=== PATIENT | female | born 1985 | race Caucasian/White ===

== ENCOUNTER → 2016-08-01 | Outpatient (CLI) | payer OTHER ==
[2016-08-01 10:40] LABS: CH 25.3; CHCM 31.8; HCT 36.8 % (34.0-46.0); HGB 11.5 gm/dL (11.4-16.0); Hypochromasia Slight; MCH 24.9 pg (25.0-35.0); MCHC 31.3 g/dL (31.0-37.0); MCV 79.8 fL (80.0-100.0); Mean Platelet Volume 7.3; RBC 4.61 m/uL (3.80-5.40); RDW 14.2 % (11.5-15.5); WBC 11.2 k/uL (3.8-10.6)
[2016-08-01 10:51] LABS: Prothrombin Time 10.3 sec (9.0-12.0)
== END | disposition home or self-care (01) ==
LOC: LABWHC1 09:37
PROVIDERS: ATTEND Internal Medicine
DX: I82.409 Acute embolism and thrombosis of unspecified deep veins of unspecified lower extremity (principal); E61.1 Iron deficiency; E66.01 Morbid (severe) obesity due to excess calories
CPT/HCPCS: 36415; 85027; 85610

== ENCOUNTER 2016-09-22 12:06 | Emergency (ER) | payer OTHER ==
[2016-09-22 12:22] VITALS: RESP 18
[2016-09-22] MEDS ORDERED: RX INFO: IV CONTRAST WAS GIVEN 1 EACH MISC MISCELLANE PRN (12:42)
--- NOTE | 2016-09-22 12:51 | ED ---
General Adult HPI - General Chief complaint: Back Pain/Injury Stated complaint: Poss Blood Clot Time Seen by Provider: 09/22/16 12:24 Source: patient, RN notes reviewed Mode of arrival: ambulatory Limitations: no limitations - History of Present Illness Initial comments: 30-year-old female presents emergency Department to rule out pulmonary embolism. Patient has had a blood clot in her right leg her last few weeks. He was diagnosed here. She states she's been having difficulty with her INR level on Coumadin. Patient states he keep open her dose states is not within normal range. Patient states that she has developed left shoulder, chest wall pain over the last few days and her doctor here to rule out PE. Patient also complains that she's been having frequent headaches after an increase in her dose of warfarin. Patient states she does have history of migraines. She states that her headache is very minimal at this time. Patient denies any shortness breath or pain with deep inspiration though. - Related Data Home Medications Medication Instructions Recorded Confirmed Acetaminophen Tab [Tylenol Tab] 1,000 mg PO Q6HR PRN 09/22/16 09/22/16 Warfarin [Coumadin] 15 mg PO DAILY@1830 09/22/16 09/22/16 Allergies Allergy/AdvReac Type Severity Reaction Status Date / Time No Known Allergies Allergy Verified 09/22/16 13:46 Review of Systems ROS Statement: Those systems with pertinent positive or pertinent negative responses have been documented in the HPI. ROS Other: All systems not noted in ROS Statement are negative. Past Medical History Past Medical History: No Reported History Additional Past Medical History / Comment(s): tourettes, -induced hypertension, recent delivery and is breast feeding. History of Any Multi-Drug Resistant Organisms: None Reported Past Surgical History: Section, Orthopedic Surgery Additional Past Surgical History / Comment(s): 06/27/16 , 2009 , R elbow surgery as child due to injury. Past Anesthesia/Blood Transfusion Reactions: No Reported Reaction Past Psychological History: No Psychological Hx Reported Additional Psychological History / Comment(s): Pt resides with 2 children. She is independent. Smoking Status: Current every day smoker Past Alcohol Use History: None Reported Additional Past Alcohol Use History / Comment(s): Pt states she started smoking at the age of 19 yrs and is a half pack a day smoker. Past Drug Use History: None Reported - Past Family History Father Family Medical History: Cancer Additional Family Medical History / Comment(s): Father has stage IV lung cancer with mets to brain. Mother Family Medical History: Myocardial Infarction ([place]) Additional Family Medical History / Comment(s): Mother had a [place] at the age of 57yrs. General Exam Limitations: no limitations General appearance: alert, in no apparent distress Head exam: Present: atraumatic, normocephalic, normal inspection Neck exam: Present: normal inspection. Absent: tenderness, meningismus, lymphadenopathy Respiratory exam: Present: normal lung sounds bilaterally. Absent: respiratory distress, wheezes, rales, rhonchi, stridor, chest wall tenderness Cardiovascular Exam: Present: regular rate, normal rhythm, normal heart sounds. Absent: systolic murmur, diastolic murmur, rubs, gallop, clicks GI/Abdominal exam: Present: soft, normal bowel sounds. Absent: distended, tenderness, guarding, rebound, rigid Neurological exam: Present: alert, oriented X3, CN II-XII intact, reflexes normal. Absent: motor sensory deficit Skin exam: Present: warm, intact Course Vital Signs 09/22/16 12:18 Temperature 98 F Pulse Rate 99 Respiratory 18 Rate Blood Pressure 135/86 O2 Sat by Pulse 98 Oximetry Medical Decision Making - Medical Decision Making 30-year-old female presented to rule out blood clot. Patient has no evidence blood clot on CT. Patient CT brain showed no acute abnormality for headaches. Patient will be discharged at this time. Patient's INR is 1.9. - Lab Data Result diagrams: 09/22/16 12:57 09/22/16 12:57 Lab Results 09/22/16 09/22/16 09/22/16 Range/Units 12:57 12:57 12:57 WBC 12.4 H (3.8-10.6) k/uL RBC 5.14 (3.80-5.40) m/uL Hgb 12.6 (11.4-16.0) gm/dL Hct 38.5 (34.0-46.0) % MCV 74.9 L (80.0-100.0) fL MCH 24.6 L (25.0-35.0) pg MCHC 32.8 (31.0-37.0) g/dL RDW 14.2 (11.5-15.5) % Plt Count 380 (150-450) k/uL Neutrophils % 55 % Lymphocytes % 35 % Monocytes % 3 % Eosinophils % 4 % Basophils % 1 % Neutrophils # 6.8 (1.3-7.7) k/uL Lymphocytes # 4.4 (1.0-4.8) k/uL Monocytes # 0.3 (0-1.0) k/uL Eosinophils # 0.5 (0-0.7) k/uL Basophils # 0.1 (0-0.2) k/uL Microcytosis Slight PT 18.8 H (9.0-12.0) sec INR 1.9 (<1.1) APTT 29.3 (22.0-30.0) sec Sodium 142 (137-145) mmol/L Potassium 4.2 (3.5-5.1) mmol/L Chloride 105 (98-107) mmol/L Carbon Dioxide 26 (22-30) mmol/L Anion Gap 11 mmol/L BUN 9 (7-17) mg/dL Creatinine 0.70 (0.52-1.04) mg/dL Est GFR (MDRD) Af Amer >60 (>60 ml/min/1.73 sqM) Est GFR (MDRD) Non-Af >60 (>60 ml/min/1.73 sqM) Glucose 95 (74-99) mg/dL Calcium 9.2 (8.4-10.2) mg/dL Disposition Clinical Impression: Left shoulder pain, Frequent headaches Disposition: HOME SELF-CARE Condition: Stable Instructions: Shoulder Pain (ED) Additional Instructions: Your INR is 1.9. Please follow-up with your primary care physician regarding further dosing. Please return to the Emergency Department if symptoms worsen or any other concerns. Time of Disposition: 14:08
[2016-09-22 13:11] LABS: Basophils # (A) 0.1 k/uL (0-0.2); Basophils % (A) 1 %; CH 24.6; CHCM 32.9; Eosinophils # (A) 0.5 k/uL (0-0.7); Eosinophils % (A) 4 %; HCT 38.5 % (34.0-46.0); HDW 3.14; HGB 12.6 gm/dL (11.4-16.0); Luc # (Auto) 0.27; Luc % (Auto) 2; Lymphocytes # (A) 4.4 k/uL (1.0-4.8); Lymphocytes % (A) 35 %; MCH 24.6 pg (25.0-35.0); MCHC 32.8 g/dL (31.0-37.0); MCV 74.9 fL (80.0-100.0); Mean Platelet Volume 6.5; Microcytosis Slight; Monocytes # (A) 0.3 k/uL (0-1.0); Monocytes % (A) 3 %; Neutrophils # (A) 6.8 k/uL (1.3-7.7); Neutrophils % (A) 55 %; RBC 5.14 m/uL (3.80-5.40); RDW 14.2 % (11.5-15.5); WBC 12.4 k/uL (3.8-10.6); WBC (Perox) 12.69
[2016-09-22 13:22] LABS: INR 1.9 (<1.1); Partial Thromboplastin Time 29.3 sec (22.0-30.0); Prothrombin Time 18.8 sec (9.0-12.0)
[2016-09-22 13:29] LABS: Anion Gap 11 mmol/L; Blood Urea Nitrogen 9 mg/dL (7-17); Calcium 9.2 mg/dL (8.4-10.2); Carbon Dioxide 26 mmol/L (22-30); Chloride 105 mmol/L (98-107); Glucose 95 mg/dL (74-99); Non-African American GFR(MDRD) >60 (>60 ml/min/1.73 sqM); Potassium 4.2 mmol/L (3.5-5.1); Sodium 142 mmol/L (137-145)
--- NOTE | 2016-09-22 13:59 | CT ---
EXAMINATION TYPE: CT brain wo con DATE OF EXAM: 09/22/2016 1:46 PM COMPARISON: NONE INDICATION: Patient complains of left shoulder pain and history of DVT. DLP: 993 mGycm, Automated exposure control for dose reduction was used. CONTRAST: None CT of the brain is performed utilizing 3 mm thick sections through the posterior fossa and 3 mm thick sections through the remaining calvarium. Study is performed within 24 hours of arrival to the hosp [facility]. No abnormal hyperdensity is present to suggest an acute intracranial hemorrhage. No mass lesion is evident. No acute infarcts are evident. Ventricles and sulci are appropriate for the patient age. Paranasal sinuses and mastoid air cells within the [id number] are clear. IMPRESSIONS: 1. Normal CT Brain
--- NOTE | 2016-09-22 14:01 | CT ---
CT CHEST FOR PULMONARY EMBOLISM. EXAMINATION TYPE: CT angio chest DATE OF EXAM: 09/22/2016 1:49 PM INDICATION: Patient complains of left shoulder pain and history of DVT. CT DLP: 559 mGycm, Automated exposure control for dose reduction was used. CONTRAST: Patient injected with 100 mL of Omnipaque 350. COMPARISON: NONE TECHNIQUE: CT of the chest is performed on a spiral scan at 2 mm thick sections. Study is performed with intravenous contrast timed for evaluation for pulmonary embolism. This will limit additional po rtions of the evaluation. 3-D MIP images reconstructed by the technologist are reviewed on the compu ter in the coronal and sagittal planes. FINDINGS: No persistent filling defects are evident to suggest an acute pulmonary embolism. No mediastinal or hilar adenopathy enlarged by CT criteria is evident. The ascending aorta diameter at the level of the main pulmonary artery is 3.5 cm. The main pulmonary artery diameter at the bifur cation is 3.1 cm. Lung windows are clear. Limited CT section through the upper abdomen are unremarkable. IMPRESSIONS: 1. No acute pulmonary embolism.
[2016-09-22 14:32] VITALS: BP 160/92; PULSE 85; TEMP 98.2
== END 2016-09-22 14:32 | disposition home or self-care (01) ==
LOC: EC 12:06
DX: M25.512 Pain in left shoulder (principal); R51 Headache; I82.401 Acute embolism and thrombosis of unspecified deep veins of right lower extremity; Z79.01 Long term (current) use of anticoagulants; F17.200 Nicotine dependence, unspecified, uncomplicated
CPT/HCPCS: 36415; 80048; 85025; 85610; 85730; 70450; 71275; 99283; Q9967

== ENCOUNTER → 2020-06-20 | Outpatient (CLI) | payer OTHER | END | disposition home or self-care (01) | LOC: LABWHC1 15:59 | PROVIDERS: ATTEND Internal Medicine | DX: R05 Cough (principal); R50.9 Fever, unspecified | CPT/HCPCS: U0003; C9803 ==

== ENCOUNTER 2020-07-29 14:07 | Emergency (ER) | payer OTHER ==
[2020-07-29 14:16] VITALS: TEMP 98
--- NOTE | 2020-07-29 15:50 | XR ---
EXAMINATION TYPE: XR chest 2V DATE OF EXAM: 07/29/2020 COMPARISON: NONE HISTORY: Short of breath TECHNIQUE: 2 views FINDINGS: Heart and mediastinum are normal. Lungs are clear. Costophrenic angles are clear. Bony thor ax is intact. There is no pleural effusion. There is mild thoracic dextroscoliosis. IMPRESSION: No active cardiopulmonary disease. Normal heart.
--- NOTE | 2020-07-29 15:53 | ED ---
URI HPI - General Chief Complaint: Upper Respiratory Infection Stated Complaint: SOB/Headache/Sore Throat Time Seen by Provider: 07/29/20 14:26 Source: patient Mode of arrival: ambulatory Limitations: no limitations - History of Present Illness Initial Comments: 34yo female exposed to covid-19 complaining of cc of headaches, body aches, cough, sore throat, dyspnea with coughing spells--patient states she is concerned she had Covid area and she states she has no chest pains is pink deep inspiration she denies calf pain or swelling. Pt denies nausea, vomiting. Patient denies hemoptysis> Patient presented today for covid testing. patient appears well nontoxic in no acute distress on arrival. no signs of respiratory distress. - Related Data Home Medications Medication Instructions Recorded Confirmed Acetaminophen Tab [Tylenol Tab] 1,000 mg PO Q6HR PRN 09/22/16 09/22/16 Warfarin [Coumadin] 15 mg PO DAILY@1830 09/22/16 09/22/16 Previous Rx's Medication Instructions Recorded predniSONE 50 mg PO DAILY 3 Days #3 tab 07/29/20 Allergies Allergy/AdvReac Type Severity Reaction Status Date / Time Penicillins Allergy Rash/Hives Verified 07/29/20 14:13 Review of Systems ROS Statement: Those systems with pertinent positive or pertinent negative responses have been documented in the HPI. ROS Other: All systems not noted in ROS Statement are negative. Past Medical History Past Medical History: No Reported History Additional Past Medical History / Comment(s): tourettes, -induced hypertension, recent delivery and is breast feeding. History of Any Multi-Drug Resistant Organisms: None Reported Past Surgical History: Section, Orthopedic Surgery Additional Past Surgical History / Comment(s): 06/27/16 , 2008 C- Section, R elbow surgery as child due to injury. Past Anesthesia/Blood Transfusion Reactions: No Reported Reaction Past Psychological History: No Psychological Hx Reported Smoking Status: Current every day smoker Past Alcohol Use History: None Reported Past Drug Use History: None Reported - Past Family History Father Family Medical History: Cancer Additional Family Medical History / Comment(s): Father has stage IV lung cancer with mets to brain. Mother Family Medical History: Myocardial Infarction ([place]) Additional Family Medical History / Comment(s): Mother had a [place] at the age of 57yrs. General Exam - General Exam Comments Initial Comments: General: The patient is awake and alert, in no distress Eye: Pupils are equal, round and reactive to light, extra-ocular movements are intact. No nystagmus. There is normal conjunctiva bilaterally. No signs of icterus. Ears, nose, mouth and throat: There are moist mucous membranes and no oral lesions. Neck: The neck is supple, there is no tenderness or JVD. Cardiovascular: There is a regular rate and rhythm. No murmur, rub or gallop is appreciated. Respiratory: Lungs are clear to auscultation, respirations are non-labored, breath sounds are equal. No wheezes, stridor, rales, or rhonchi. Gastrointestinal: Soft, non-distended, non-tender abdomen without masses or organomegaly noted. There is no rebound or guarding present. Musculoskeletal: Normal ROM, no tenderness. Strength 5/5. Sensation intact. Radial pulses equal bilaterally 2+. Neurological: A&O x 3. CN II-XII intact grossly, There are no obvious motor or sensory deficits. Coordination appears grossly intact. Speech is normal. Skin: Skin is warm and dry and no rashes or lesions are noted. No LE edema. Psychiatric: Cooperative, appropriate mood & affect, normal judgment. Limitations: no limitations Course Vital Signs 07/29/20 07/29/20 14:14 16:23 Temperature 98 F Pulse Rate 85 84 Respiratory 18 17 Rate Blood Pressure 135/92 154/99 O2 Sat by Pulse 97 97 Oximetry Medical Decision Making - Medical Decision Making Pt not hypoxic nor in distress, no chest pain. Covid +. CXR clear. Lungs clear. Pt agreeable to discharge with outpatient f/u. return for worsening symptoms. - Lab Data Lab Results 07/29/20 Range/Units 15:02 Coronavirus (PCR) Detected A (Not Detectd) Disposition Clinical Impression: Cough, Congestion of nasal sinus, Body aches, Headache, Dyspnea, COVID-19 Disposition: HOME SELF-CARE Condition: Good Instructions (If sedation given, give patient instructions): Upper Respiratory Infection (ED) Additional Instructions: Please use medication as discussed. Please follow-up with family doctor in the next 2 days.. Please return to emergency room if the symptoms increase or worsen or for any other concerns. Prescriptions: predniSONE 50 mg PO DAILY 3 Days #3 tab Is patient prescribed a controlled substance at d/c from ED?: No Referrals: Rhoda Garduno MD [Primary Care Provider] - 1-2 days Time of Disposition: 15:53
[2020-07-29 16:27] VITALS: BP 154/99; PULSE 84; RESP 17
== END 2020-07-29 16:29 | disposition home or self-care (01) ==
LOC: EC 14:07
DX: U07.1 COVID-19 (principal); F17.200 Nicotine dependence, unspecified, uncomplicated; Z79.01 Long term (current) use of anticoagulants; Z88.0 Allergy status to penicillin
CPT/HCPCS: 71046; 87635; 99283

== ENCOUNTER 2020-11-13 15:22 | Emergency (ER) | payer OTHER ==
[2020-11-13 15:42] VITALS: TEMP 97.8
--- NOTE | 2020-11-13 16:44 | ED ---
URI HPI - General Chief Complaint: Upper Respiratory Infection Stated Complaint: headaches/nausea/SOB Time Seen by Provider: 11/13/20 16:32 Source: patient, RN notes reviewed Mode of arrival: ambulatory Limitations: no limitations - History of Present Illness Initial Comments: Patient is a 35-year-old female that presents to the emergency department com plaining of cold-like symptoms for the past 3-4 days. She notes that she's had a headache since Thursday but developed a cough on Thursday. She notes the cough is dry and nonproductive and she notes that she had Covid once previously and that if she test positive this time of year second time. She notes that she feels like it has not hit his hard as previous. Her symptoms include cough sinus drainage body aches. She denied any nausea fever. She denied any chest pain shortness of breath fever fatigue chills nausea vomiting diarrhea constipation - Related Data Home Medications Medication Instructions Recorded Confirmed Acetaminophen Tab [Tylenol Tab] 1,000 mg PO Q6HR PRN 09/22/16 09/22/16 Warfarin [Coumadin] 15 mg PO DAILY@1830 09/22/16 09/22/16 Previous Rx's Medication Instructions Recorded predniSONE 50 mg PO DAILY 3 Days #3 tab 07/29/20 Allergies Allergy/AdvReac Type Severity Reaction Status Date / Time Penicillins Allergy Rash/Hives Verified 11/13/20 15:42 Review of Systems ROS Statement: Those systems with pertinent positive or pertinent negative responses have been documented in the HPI. ROS Other: All systems not noted in ROS Statement are negative. Past Medical History Past Medical History: Deep Vein Thrombosis (DVT) Additional Past Medical History / Comment(s): tourettes, -induced hypertension, recent delivery and is breast feeding. History of Any Multi-Drug Resistant Organisms: None Reported Past Surgical History: Section, Orthopedic Surgery Additional Past Surgical History / Comment(s): 06/27/16 , 2009 C- Section, R elbow surgery as child due to injury. Past Anesthesia/Blood Transfusion Reactions: No Reported Reaction Past Psychological History: No Psychological Hx Reported Smoking Status: Current every day smoker Past Alcohol Use History: None Reported Past Drug Use History: None Reported - Past Family History Father Family Medical History: Cancer Additional Family Medical History / Comment(s): Father has stage IV lung cancer with mets to brain. Mother Family Medical History: Myocardial Infarction ([place]) Additional Family Medical History / Comment(s): Mother had a [place] at the age of 57yrs. General Exam Limitations: no limitations General appearance: alert, in no apparent distress, obese Head exam: Present: atraumatic, normocephalic, normal inspection Eye exam: Present: normal appearance, PERRL, EOMI. Absent: scleral icterus, conjunctival injection, periorbital swelling Neck exam: Present: normal inspection. Absent: tenderness, meningismus, lymphadenopathy Respiratory exam: Present: normal lung sounds bilaterally. Absent: respiratory distress, wheezes, rales, rhonchi, stridor Cardiovascular Exam: Present: regular rate, normal rhythm, normal heart sounds. Absent: systolic murmur, diastolic murmur, rubs, gallop, clicks GI/Abdominal exam: Present: soft, normal bowel sounds. Absent: distended, tenderness, guarding, rebound, rigid Extremities exam: Present: normal inspection, full ROM, normal capillary refill. Absent: tenderness, pedal edema, joint swelling, calf tenderness Neurological exam: Present: alert, oriented X3, CN II-XII intact Psychiatric exam: Present: normal affect, normal mood Skin exam: Present: warm, dry, intact, normal color. Absent: rash Course Vital Signs 11/13/20 11/13/20 15:38 17:15 Temperature 97.8 F Pulse Rate 86 Respiratory 20 18 Rate Blood Pressure 159/97 O2 Sat by Pulse 99 Oximetry Medical Decision Making - Medical Decision Making 35-year-old female complaining of Covid like symptoms since Thursday. Covid test, chest x-ray ordered. Patient was informed that if she is positive she does meet criteria for monoclonal antibody therapy, she said that she does not feel like she needs it at this time. She was informed that this medication was recommended due to the benefits, she still declined. Covid test negative. Chest x-ray showed no acute cardiopulmonary process. Case discussed with Dr. Gore, patient can discharge home with follow-up to primary care. - Lab Data Lab Results 11/13/20 Range/Units 15:38 Coronavirus (PCR) Not Detected (Not Detectd) - Radiology Data Radiology results: report reviewed, image reviewed Chest x-ray no acute cardiopulmonary process Disposition Clinical Impression: Upper respiratory tract infection Disposition: HOME SELF-CARE Condition: Stable Instructions (If sedation given, give patient instructions): Upper Respiratory Infection (ED) Additional Instructions: Please return to the Emergency Department if symptoms worsen or any other concerns. Follow-up with primary care in 3-5 days if symptoms don't improve. Can take [id number] cough medicine anti-inflammatories for symptomatic control. Increase fluids, rest. Is patient prescribed a controlled substance at d/c from ED?: No Referrals: Rhoda Garduno MD [Primary Care Provider] - 1-2 days Time of Disposition: 18:03
[2020-11-13 17:16] VITALS: RESP 18
--- NOTE | 2020-11-13 17:54 | XR ---
EXAMINATION TYPE: XR chest 1V DATE OF EXAM: 11/13/2020 CLINICAL HISTORY: Covid exposure. Headache, shortness breath, nausea. TECHNIQUE: Frontal view of the chest. COMPARISON: 07/29/2020 chest radiograph FINDINGS: The cardiomediastinal silhouette is within normal limits for size. Pulmonary vasculature i s normal. There is no focal air space opacity, pleural effusion, or pneumothorax seen. There is dextr ocurvature of the thoracic spine. IMPRESSION: No acute cardiopulmonary process.
[2020-11-13 18:16] VITALS: BP 129/84; PULSE 79
== END 2020-11-13 18:15 | disposition home or self-care (01) ==
LOC: EC 15:22
DX: J06.9 Acute upper respiratory infection, unspecified (principal); F17.200 Nicotine dependence, unspecified, uncomplicated; Z79.01 Long term (current) use of anticoagulants; Z88.0 Allergy status to penicillin; Z86.718 Personal history of other venous thrombosis and embolism
CPT/HCPCS: 71045; 87635; 99285

== ENCOUNTER 2022-12-13 14:47 | Emergency (ER) | payer BC, OTHER ==
[2022-12-13 15:08] VITALS: BP 156/103; RESP 18; TEMP 102.2
[2022-12-13] MEDS ORDERED: IBUPROFEN 800 MG TAB PO STA (16:03)
[2022-12-13] MEDS ORDERED: ACETAMINOPHEN TAB 500 MG TAB PO STA (16:03)
[2022-12-13] MEDS ORDERED: NEOMYCIN-POLYMYXIN-DEXAMETH (3.5-10,000-0.1) DROPS 5 ML BTL BOTH EYES STA (16:03)
[2022-12-13] MEDS ORDERED: dexAMETHasone 2 MG TAB PO STA (16:03)
[2022-12-13] MEDS ORDERED: AZITHROMYCIN 500 MG TAB PO STA (16:07)
--- NOTE | 2022-12-13 16:09 | ED ---
Fever HPI - General Chief Complaint: Fever Stated Complaint: R eye issues,SOB Time Seen by Provider: 12/13/22 15:20 Source: patient, RN notes reviewed, old records reviewed Mode of arrival: ambulatory Limitations: no limitations - History of Present Illness Initial Comments: This is a 37-year-old female to the emergency department for evaluation today. Patient comes in by drainage right eye pain right eye and left eye swelling, runny nose cough and congestion sore throat. Fever today. Patient has had fever for about 5-6 days currently. Multiple family members in the house have similar illness. MD Complaint: fever, other (Right eye pain swelling and discharge, left eye is also draining.) -: days(s) Temperature Source: oral Context: sick contacts, multiple patients with similar symptoms Associated Symptoms: denies other symptoms Treatments Prior to Arrival: none - Related Data Home Medications Medication Instructions Recorded Confirmed Acetaminophen Tab [Tylenol Tab] 1,000 mg PO Q6HR PRN 09/22/16 09/22/16 Warfarin [Coumadin] 15 mg PO DAILY@1830 09/22/16 09/22/16 Previous Rx's Medication Instructions Recorded predniSONE 50 mg PO DAILY 3 Days #3 tab 07/29/20 Azithromycin [Zithromax] 500 mg PO DAILY #5 tab 12/13/22 Allergies Allergy/AdvReac Type Severity Reaction Status Date / Time Penicillins Allergy Rash/Hives Verified 12/13/22 15:08 Review of Systems ROS Statement: Those systems with pertinent positive or pertinent negative responses have been documented in the HPI. ROS Other: All systems not noted in ROS Statement are negative. Past Medical History Past Medical History: Deep Vein Thrombosis (DVT) Additional Past Medical History / Comment(s): tourettes, -induced hypertension, recent delivery and is breast feeding. History of Any Multi-Drug Resistant Organisms: None Reported Past Surgical History: Section, Orthopedic Surgery Additional Past Surgical History / Comment(s): 06/27/16 , 2009 C- Section, R elbow surgery as child due to injury. Past Anesthesia/Blood Transfusion Reactions: No Reported Reaction Past Psychological History: No Psychological Hx Reported Smoking Status: Current every day smoker Past Alcohol Use History: None Reported Past Drug Use History: None Reported - Past Family History Father Family Medical History: Cancer Additional Family Medical History / Comment(s): Father has stage IV lung cancer with mets to brain. Mother Family Medical History: Myocardial Infarction (AZ) Additional Family Medical History / Comment(s): Mother had a AZ at the age of 57yrs. General Exam Limitations: no limitations General appearance: alert, in no apparent distress Head exam: Present: atraumatic, normocephalic, normal inspection Eye exam: Present: normal appearance, PERRL, EOMI. Absent: scleral icterus, conjunctival injection, periorbital swelling ENT exam: Present: normal exam, mucous membranes moist Neck exam: Present: normal inspection. Absent: tenderness, meningismus, lymphadenopathy Respiratory exam: Present: normal lung sounds bilaterally. Absent: respiratory distress, wheezes, rales, rhonchi, stridor Cardiovascular Exam: Present: regular rate, normal rhythm, normal heart sounds. Absent: systolic murmur, diastolic murmur, rubs, gallop, clicks GI/Abdominal exam: Present: soft, normal bowel sounds. Absent: distended, tenderness, guarding, rebound, rigid Extremities exam: Present: normal inspection, full ROM, normal capillary refill. Absent: tenderness, pedal edema, joint swelling, calf tenderness Back exam: Present: normal inspection Neurological exam: Present: alert, oriented X3, CN II-XII intact Psychiatric exam: Present: normal affect, normal mood Skin exam: Present: warm, dry, intact, normal color. Absent: rash Course Vital Signs 12/13/22 12/13/22 15:02 16:32 Temperature 102.2 F H Pulse Rate 133 H 108 H Respiratory 18 18 Rate Blood Pressure 156/103 O2 Sat by Pulse 98 99 Oximetry - Reevaluation(s) Reevaluation #1: 12/13/22 20:28 Medical records reviewed Reevaluation #2: 12/13/22 20:28 Patient symptoms are improved Reevaluation #3: 12/13/22 20:28 Patient informed results questions answered Reevaluation #4: 12/13/22 20:28 Was pt. sent in by a medical professional or institution? @ -no Did you speak to anyone other than the patient for history? @ -no Did you review nursing and triage notes? @ -agree Were old charts reviewed? @ -no Differential Diagnosis? @ -prior EKG interpreted by me (3pts min.)? @ -yes X-rays interpreted by me (1pt min.)? @ -no CT interpreted by me (1pt min.)? @ -no U/S interpreted by me (1pt. min.)? @ -no What testing was considered but not performed? (CT, X-rays, U/S, labs)? Why? @ -no What meds were considered but not given? Why? @ -no Did you discuss the management of the patient with other professionals? @ -no Did you reconcile home meds? @ -no Was smoking cessation discussed for >3mins.? @ -no Was critical care preformed (if so, how long)? @ -no Were there social determinants of health that impacted care today? How? (Homelessness, low income, unemployed, alcoholism, drug addiction, tr ansportation, low edu. Level, literacy, decrease access to med. care, halfway, rehab)? @ -no Was there de-escalation of care discussed even if they declined? (Discuss DNR or withdrawal of care, Hospice)? @ -no What co-morbidities impacted this encounter? (DM, HTN, Smoking, COPD, CAD, Cancer, CVA, Hep., AIDS, mental health diagnosis, sleep apnea, morbid obesity)? @ -none Was patient admitted / discharged? @ -37 female with a breast for infection including bacterial conjunctivitis will treat appropriately and patient can be discharged home Discharged Undiagnosed new problem with uncertain prognosis? @ -no Drug Therapy requiring intensive monitoring for toxicity (Heparin, Nitro, Insulin, Cardizem)? @ -no Were any procedures done? @ -no Diagnosis/symptom? @ -Bacterial conjunctivitis and Acute, or Chronic, or Acute on Chronic? @ -no Uncomplicated (without systemic symptoms) or Complicated (systemic symptoms)? @ -uncomplicated Side effects of treatment? @ -no Exacerbation, Progression, or Severe Exacerbation] @ -no Poses a threat to life or bodily function? @ -no Medical Decision Making - Medical Decision Making 37 female to the ER with fever, patient is not feeling well, multiple recent sick contacts with similar complaints, patient does suffer from bilateral conjunctivitis and upper respiratory infection. Patient will treat appropriately can be discharged home Disposition Clinical Impression: Fever, Bacterial conjunctivitis, URI (upper respiratory infection) Disposition: HOME SELF-CARE Condition: Good Instructions (If sedation given, give patient instructions): Pharyngitis (ED), Fever in Adults (ED), Upper Respiratory Infection (ED), Conjunctivitis (ED) Prescriptions: Azithromycin [Zithromax] 500 mg PO DAILY #5 tab Is patient prescribed a controlled substance at d/c from ED?: No Referrals: None,Stated [Primary Care Provider] - 1-2 days Time of Disposition: 16:05
[2022-12-13 16:33] VITALS: PULSE 108
== END 2022-12-13 16:38 | disposition home or self-care (01) ==
LOC: EC 14:47
DX: H10.89 Other conjunctivitis (principal); J06.9 Acute upper respiratory infection, unspecified; F17.200 Nicotine dependence, unspecified, uncomplicated; Z79.01 Long term (current) use of anticoagulants; Z88.0 Allergy status to penicillin
CPT/HCPCS: 99283; J8540